=== PATIENT | female | born 1985 | race Caucasian/White ===

== ENCOUNTER 2018-11-25 08:14 | Emergency (ER) | payer MEDICAID, OTHER ==
[~2018-11-25] VITALS: Ht 165.1 cm; Wt 81.5 kg
--- NOTE | 2018-11-25 09:07 | NUR ---
Pt to room from lobby with steady gait at this time.
--- NOTE | 2018-11-25 09:21 | NUR ---
PT WITH C/O R ARM PAIN RADIATING TO NECK. PT STATES, "I CANT TURN MY NECK ALL THE WAY, IM MAXED OUT ON MY TYLENOL, AND I TOOK A FLEXERIL THIS MORNING AND IT DIDNT DO ANYTHING" PT DENIES CP, SOB, TRAUMA TO R ARM. PT ON NIBP, CONT PULSE OX.
[2018-11-25] MEDS ORDERED: DIAZEPAM 5 MG/ML, 2ML IV ONE (09:30)
[2018-11-25] MEDS ORDERED: HYDROmorphone 2 MG/ML, 1ML IVPush PRN (09:30)
[2018-11-25] MEDS ORDERED: methylPREDNISolone SOD SUCC 40 MG/ML IV ONE (09:30)
[2018-11-25] MEDS ORDERED: SODIUM CHLORIDE FLUSH 10ML SYR IVF ONE (09:30)
[2018-11-25] MEDS ORDERED: methylPREDNISolone SOD SUCC 125 MG/2 ML ONE (09:36)
[2018-11-25] MEDS ORDERED: DIAZEPAM 5 MG/ML, 2ML ONE (09:37)
[2018-11-25] MEDS ORDERED: HYDROmorphone 2 MG/ML, 1ML ONE (10:18)
[2018-11-25 11:11] VITALS: BP 120/76
--- NOTE | 2018-11-25 11:11 | NUR ---
Patient/Caregiver given discharge instructions and they have confirmed that they understand the instructions. Patient ambulatory with steady gait. Pt left with all personal belongings.
--- NOTE | 2018-11-25 11:13 | NUR ---
Pt given taxi voucher for safe [place] home.
== END 2018-11-25 11:14 | disposition home or self-care (01) ==
LOC: ED 10:57
DX: S46.811A Strain of other muscles, fascia and tendons at shoulder and upper arm level, right arm, initial encounter (principal); Z87.891 Personal history of nicotine dependence; X58.XXXA Exposure to other specified factors, initial encounter; Y93.89 Activity, other specified; Y92.89 Other specified places as the place of occurrence of the external cause; Y99.8 Other external cause status
CPT/HCPCS: 73010; 96374; 96375; 99283; J1170; J2920; J3360

== ENCOUNTER 2019-02-21 14:35 | Emergency (ER) | payer MEDICAID ==
[~2019-02-21] VITALS: Ht 170.2 cm; Wt 80.0 kg
[2019-02-21 14:38] VITALS: BP 145/88
[2019-02-21] MEDS ORDERED: CYCLOBENZAPRINE 10 MG TABLET PO ONE (15:00)
[2019-02-21] MEDS ORDERED: ONDANSETRON ODT 4 MG PO ONE (15:00)
[2019-02-21] MEDS ORDERED: HYDROcodone/APAP 5/325 TABLET PO ONE (15:00)
[2019-02-21] MEDS ORDERED: KETOROLAC 30 MG/1 ML IM ONE (15:00)
--- NOTE | 2019-02-21 15:16 | NUR ---
34 Y/O FEMALE PRESENTS TO ED WITH C/O BACK PAIN. 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 I GO TO [facility]. THEY'VE GIVEN ME GABAPENTIN AND MUSCLE RELAXERS. THEY AREN'T WORKING. I HAVE AN APPT ON THE , BUT I CAN'T GET OUT OF BED OR WALK. THE PAIN IS SO BAD." PT RESTING ON GURNEY. PT APPEARS TO BE IN MODERATE DISTRESS. DAUGHTER BEDSIDE.
[2019-02-21] MEDS ORDERED: KETOROLAC 30 MG/1 ML ONE (15:22)
[2019-02-21] MEDS ORDERED: CYCLOBENZAPRINE 10 MG TABLET ONE (15:22)
[2019-02-21] MEDS ORDERED: ONDANSETRON ODT 4 MG ONE (15:22)
[2019-02-21] MEDS ORDERED: HYDROcodone/APAP 5/325 TABLET ONE (15:22)
--- NOTE | 2019-02-21 16:17 | NUR ---
Patient/Caregiver given discharge instructions and they have confirmed that they understand the instructions. Patient ambulatory with steady gait. PT LEFT WITH ALL PERSONAL BELONGINGS.
== END 2019-02-21 16:20 | disposition home or self-care (01) ==
LOC: ED 16:05
DX: S39.012A Strain of muscle, fascia and tendon of lower back, initial encounter (principal); M54.41 Lumbago with sciatica, right side; Z79.899 Other long term (current) drug therapy; X58.XXXA Exposure to other specified factors, initial encounter; Y93.89 Activity, other specified; Y92.89 Other specified places as the place of occurrence of the external cause; Y99.8 Other external cause status
CPT/HCPCS: 96372; 99284; J1885; Q0162

== ENCOUNTER 2020-12-08 05:45 | Emergency (ER) | payer MEDICAID ==
[~2020-12-08] VITALS: Ht 170.2 cm; Wt 109.0 kg
--- NOTE | 2020-12-08 06:02 | NUR ---
PT BIB [facility] WITH N/V SINCE 0000. LAST THING PT ATE WAS [facility] AT 1100 12/07/20. PT RESTING ON GURNEY, AND PLACED ON CONTINUOUS MONITORING
[2020-12-08] MEDS ORDERED: MAALOX/HYOSCYAMINE/LIDOCAINE 45 ML BTL ONE (06:13)
[2020-12-08] MEDS ORDERED: PROMETHAZINE 25 MG/ML, 1ML ONE (06:13)
--- NOTE | 2020-12-08 06:22 | NUR ---
PT GIVEN MEDICATIONS, RESTING ON [place]
[2020-12-08 06:24] LABS: BASOPHILS % (AUTO) 0 % (0-1); EOSINOPHILS % (AUTO) 1 % (1-7); LYMPHOCYTES % (AUTO) 7 % (22-44); MEAN CORPUSCULAR HEMOGLOBIN 31.3 pg (27.0-34.8); MEAN CORPUSCULAR HGB CONC 33.4 g/dL (32.4-35.8); MONOCYTES % (AUTO) 3 % (2-9); NEUTROPHILS % (AUTO) 89 % (42-75); PLATELET COUNT 509 x10^3/uL (130-400); RED CELL DISTRIBUTION WIDTH 14.4 % (9.6-15.2)
[2020-12-08 06:30] LABS: ALANINE AMINOTRANSFERASE 40 U/L (12-78); ALBUMIN 3.3 g/dL (3.4-5.0); ANION GAP 12 mmol/L (5-15); CALCIUM 9.3 mg/dL (8.5-10.1); CHLORIDE 110 mmol/L (98-107); CREATININE 0.76 mg/dL (0.55-1.02)
[2020-12-08] MEDS ORDERED: MAALOX/HYOSCYAMINE/LIDOCAINE 45 ML BTL PO ONE (06:30)
[2020-12-08] MEDS ORDERED: PROMETHAZINE 25 MG/ML, 1ML IM ONE (06:30)
[2020-12-08] MEDS ORDERED: SODIUM CHLORIDE FLUSH 10ML SYR IVF ONE (06:30)
[2020-12-08] MEDS ORDERED: SODIUM CHLORIDE 0.9% 1,000ML IVBOLUS ONE (06:30)
[2020-12-08 06:35] LABS: ALKALINE PHOSPHATASE 112 U/L (45-117); BILIRUBIN,TOTAL 0.6 mg/dL (0.2-1.0); TOTAL PROTEIN 7.7 g/dL (6.4-8.2)
--- NOTE | 2020-12-08 07:04 | NUR ---
REPORT GIVEN TO LARISSA KEBEDE
[2020-12-08 07:39] VITALS: BP 152/88
--- NOTE | 2020-12-08 07:59 | NUR ---
PT TO CT.
[2020-12-08] MEDS ORDERED: OMNIPAQUE 350 MG/ML, 100ML BOTTLE ONE (08:18)
--- NOTE | 2020-12-08 08:28 | NUR ---
PT SLEEPING ON GURNEY, RESP EVEN AND UNLABORED, NADN.
[2020-12-08] MEDS ORDERED: HYDROcodone/APAP 10/325 MG TABLET ONE (08:48)
[2020-12-08] MEDS ORDERED: HYDROcodone/APAP 10/325 MG TABLET PO ONE (09:00)
--- NOTE | 2020-12-08 09:52 | NUR ---
Patient given discharge instructions and they have confirmed that they understand the instructions. Patient ambulatory with steady gait.
== END 2020-12-08 10:01 | disposition home or self-care (01) ==
LOC: ED 06:13
DX: J18.1 Lobar pneumonia, unspecified organism (principal); Z20.822 Contact with and (suspected) exposure to COVID-19; R11.2 Nausea with vomiting, unspecified; F17.200 Nicotine dependence, unspecified, uncomplicated
CPT/HCPCS: 36415; 74177; 80053; 83690; 84703; 85025; 96360; 96372; 99285; J2550; J7030; Q9967; U0003; U0005

== ENCOUNTER 2020-12-26 14:44 | Inpatient (IN) | payer MEDICAID ==
[~2020-12-26] VITALS: Ht 170.2 cm; Wt 105.7 kg
[2020-12-26 15:54] LABS: BASOPHILS % (AUTO) 1 % (0-1); EOSINOPHILS % (AUTO) 2 % (1-7); LYMPHOCYTES % (AUTO) 18 % (22-44); MEAN CORPUSCULAR HEMOGLOBIN 30.9 pg (27.0-34.8); MEAN CORPUSCULAR HGB CONC 34.1 g/dL (32.4-35.8); MEAN PLATELET VOLUME 7.2 fL (7.4-10.4); MONOCYTES % (AUTO) 5 % (2-9); NEUTROPHILS % (AUTO) 74 % (42-75); PLATELET COUNT 734 x10^3/uL (130-400); RED BLOOD COUNT 3.81 x10^6/uL (3.82-5.3); RED CELL DISTRIBUTION WIDTH 13.5 % (9.6-15.2)
[2020-12-26] MEDS ORDERED: SODIUM CHLORIDE 0.9% 1,000ML IVBOLUS ONE (16:00)
[2020-12-26] MEDS ORDERED: SODIUM CHLORIDE FLUSH 10ML SYR IVF ONE (16:00)
[2020-12-26] MEDS ORDERED: CEFTRIAXONE 1,000 MG in DEXTROSE 5% 50 ML IVPB ONE (16:00)
[2020-12-26] MEDS ORDERED: AZITHROMYCIN 500 MG in SODIUM CHLORIDE 0.9% 250 ML IV ONE (16:00)
--- NOTE | 2020-12-26 16:00 | NUR ---
PIV PLACED, IVF, ABX. BLOOD CULUTRES DRAWN PRIOR
[2020-12-26 16:07] LABS: ALBUMIN 2.9 g/dL (3.4-5.0); ANION GAP 5 mmol/L (5-15); CALCIUM 9.3 mg/dL (8.5-10.1); CHLORIDE 103 mmol/L (98-107)
[2020-12-26 16:11] LABS: ALANINE AMINOTRANSFERASE 21 U/L (12-78); ALKALINE PHOSPHATASE 94 U/L (45-117); BILIRUBIN,TOTAL 0.3 mg/dL (0.2-1.0); CREATININE 0.74 mg/dL (0.55-1.02); TOTAL PROTEIN 7.7 g/dL (6.4-8.2)
[2020-12-26 16:21] LABS: INTERNATIONAL NORMALIZED RATIO > 8.00 (0.93-1.1); PROTHROMBIN TIME > 84.0 Seconds (9.6-11.5)
[2020-12-26] MEDS ORDERED: POTASSIUM CHLORIDE 20 MEQ TAB.ER.PRT ONE (16:27)
[2020-12-26] MEDS ORDERED: PHYTONADIONE 10 MG/ML, 1ML ONE (16:28)
[2020-12-26] MEDS ORDERED: PHYTONADIONE 10 MG/ML, 1ML IM ONE (16:30)
[2020-12-26] MEDS ORDERED: POTASSIUM CHLORIDE 20 MEQ TAB.ER.PRT PO ONE (16:30)
--- NOTE | 2020-12-26 16:39 | NUR ---
PT AGREEABLE TO ADMISSION NOW
[2020-12-26] MEDS ORDERED: LAMO100T5 PO (16:49)
[2020-12-26] MEDS ORDERED: WARF-36 PO (16:49)
[2020-12-26] MEDS ORDERED: HYDR-3248 PO (16:49)
[2020-12-26] MEDS ORDERED: ATOR-2 PO (16:49)
[2020-12-26] MEDS ORDERED: TRAZ50TA66 PO (16:49)
[2020-12-26] MEDS ORDERED: HYDROcodone/APAP 10/325 MG TABLET ONE (17:43)
[2020-12-26] MEDS ORDERED: ONDANSETRON 2MG/ML, 2ML IVPush PRN (18:00)
[2020-12-26] MEDS ORDERED: ACETAMINOPHEN 325 MG TABLET PO PRN (18:00)
--- NOTE | 2020-12-26 19:09 | NUR ---
AWAITING TRANSFER UPSTAIRS. PT PROVIDED WITH MEAL TRAY. ON CONTINUOUS PULSE OX. NO OTHER NEEDS AT THIS TIME.
--- NOTE | 2020-12-26 19:21 | NUR ---
REPORT GIVEN TO LARISSA FERNANDEZ
[2020-12-26] MEDS: LORazepam 2 MG/ML, 1ML IVPush PRN (19:41)
[2020-12-26] MEDS: ATORVASTATIN 80 MG TABLET PO SCH (20:36)
[2020-12-26] MEDS: TRAZODONE 50MG TABLET PO SCH (20:36)
[2020-12-26] MEDS: BENZONATATE 100 MG CAPSULE PO SCH ×2 (20:36→21:00)
[2020-12-26] MEDS: LAMOTRIGINE 100 MG TABLET PO SCH (20:37)
[2020-12-26] MEDS: ASCORBIC ACID 250 MG TAB PO SCH (20:37)
[2020-12-26 20:45] VITALS: BP 116/76
[2020-12-26] MEDS ORDERED: ALBUTEROL SULFATE 2.5 MG/3 ML NPPB PRN (21:00)
[2020-12-27 03:30] VITALS: BP 117/68
[2020-12-27] MEDS: ASCORBIC ACID 250 MG TAB PO SCH (08:00)
[2020-12-27] MEDS ORDERED: HYDROcodone/APAP 10/325 MG TABLET PO SCH (08:00)
[2020-12-27 08:01] VITALS: BP 110/67
[2020-12-27 08:17] LABS: BASOPHILS % (AUTO) 1 % (0-1); EOSINOPHILS % (AUTO) 6 % (1-7); LYMPHOCYTES % (AUTO) 21 % (22-44); MEAN CORPUSCULAR HEMOGLOBIN 31.1 pg (27.0-34.8); MEAN CORPUSCULAR HGB CONC 33.4 g/dL (32.4-35.8); MEAN PLATELET VOLUME 7.1 fL (7.4-10.4); MONOCYTES % (AUTO) 6 % (2-9); NEUTROPHILS % (AUTO) 66 % (42-75); PLATELET COUNT 675 x10^3/uL (130-400); RED CELL DISTRIBUTION WIDTH 13.8 % (9.6-15.2)
[2020-12-27 08:29] LABS: ALBUMIN 2.4 g/dL (3.4-5.0); CALCIUM 9.2 mg/dL (8.5-10.1)
[2020-12-27 08:39] LABS: ANION GAP 4 mmol/L (5-15); CHLORIDE 108 mmol/L (98-107)
[2020-12-27 08:42] LABS: ALANINE AMINOTRANSFERASE 18 U/L (12-78); ALKALINE PHOSPHATASE 87 U/L (45-117); BILIRUBIN,TOTAL 0.5 mg/dL (0.2-1.0); CREATININE 0.53 mg/dL (0.55-1.02); TOTAL PROTEIN 6.6 g/dL (6.4-8.2)
[2020-12-27] MEDS ORDERED: CHOLECALCIFEROL 5,000u TAB ONE (08:44)
[2020-12-27] MEDS ORDERED: ASCORBIC ACID 500 MG TABLET ONE (08:44)
[2020-12-27 08:50] LABS: INTERNATIONAL NORMALIZED RATIO 5.48 (0.93-1.1); PROTHROMBIN TIME 54.1 Seconds (9.6-11.5)
[2020-12-27] MEDS: HYDROcodone/APAP 10/325 MG TABLET PO PRN ×2 (08:51→13:30)
[2020-12-27] MEDS: LAMOTRIGINE 100 MG TABLET PO SCH ×2 (08:52→20:54)
[2020-12-27] MEDS: ZINC SULFATE 220 MG CAPSULE PO SCH (08:52)
[2020-12-27] MEDS: BENZONATATE 100 MG CAPSULE PO SCH ×3 (08:52→15:32)
[2020-12-27] MEDS ORDERED: CHOLECALCIFEROL 1,000 UNIT TABLET PO SCH (09:00)
[2020-12-27] MEDS ORDERED: CEFTRIAXONE 1,000 MG IVPB SCH (09:00)
[2020-12-27] MEDS: NICOTINE 21 MG/24 HR PATCH.TD24 TD SCH (13:30)
[2020-12-27] MEDS: LORazepam 2 MG/ML, 1ML IVPush PRN ×2 (13:30→20:49)
[2020-12-27 13:38] VITALS: BP 117/67
[2020-12-27] MEDS ORDERED: CLON0.5T20 PO (13:42)
[2020-12-27] MEDS ORDERED: HYDR-826 PO (13:42)
[2020-12-27] MEDS: CEFTRIAXONE 1,000 MG in DEXTROSE 5% 50 ML IVPB SCH (15:56)
[2020-12-27] MEDS: GUAIFENESIN/DM 200-20MG, 10ML UDC PO PRN (16:45)
[2020-12-27] MEDS: AZITHROMYCIN 500 MG in SODIUM CHLORIDE 0.9% 250 ML IV SCH (16:45)
[2020-12-27] MEDS: ASCORBIC ACID 500 MG TABLET PO SCH (16:46)
[2020-12-27] MEDS ORDERED: POTASSIUM PHOSPHATE 44 MEQ in SODIUM CHLORIDE 0.9% 500 ML IV ONE (17:00)
[2020-12-27] MEDS ORDERED: GUAIFENESIN 100 MG/5 ML, 5ML UDC PO PRN (17:00)
[2020-12-27 19:37] VITALS: BP 102/65
[2020-12-27] MEDS: ATORVASTATIN 80 MG TABLET PO SCH (20:50)
[2020-12-27] MEDS: TRAZODONE 50MG TABLET PO SCH (20:54)
[2020-12-28 00:59] VITALS: BP 103/64
[2020-12-28 05:02] LABS: BASOPHILS % (AUTO) 1 % (0-1); EOSINOPHILS % (AUTO) 6 % (1-7); LYMPHOCYTES % (AUTO) 28 % (22-44); MEAN CORPUSCULAR HGB CONC 33.8 g/dL (32.4-35.8); MEAN PLATELET VOLUME 7.2 fL (7.4-10.4); MONOCYTES % (AUTO) 5 % (2-9); NEUTROPHILS % (AUTO) 61 % (42-75); PLATELET COUNT 621 x10^3/uL (130-400); RED BLOOD COUNT 3.65 x10^6/uL (3.82-5.3); RED CELL DISTRIBUTION WIDTH 13.8 % (9.6-15.2)
[2020-12-28 05:12] LABS: INTERNATIONAL NORMALIZED RATIO 1.93 (0.93-1.1)
[2020-12-28 05:17] LABS: CALCIUM 8.9 mg/dL (8.5-10.1)
[2020-12-28 05:19] LABS: CREATININE 0.56 mg/dL (0.55-1.02)
[2020-12-28 05:34] LABS: ANION GAP 3 mmol/L (5-15); CHLORIDE 109 mmol/L (98-107)
[2020-12-28 06:59] VITALS: BP 102/65
[2020-12-28] MEDS: LAMOTRIGINE 100 MG TABLET PO SCH (07:29)
[2020-12-28] MEDS: HYDROcodone/APAP 10/325 MG TABLET PO PRN ×2 (07:29→11:54)
[2020-12-28] MEDS: ASCORBIC ACID 500 MG TABLET PO SCH ×2 (07:29→16:26)
[2020-12-28] MEDS: ZINC SULFATE 220 MG CAPSULE PO SCH (07:29)
[2020-12-28] MEDS ORDERED: POTASSIUM CHLORIDE 20 MEQ TAB.ER.PRT PO ONE (08:30)
[2020-12-28] MEDS ORDERED: CHOLECALCIFEROL 5,000u TAB PO SCH (09:00)
[2020-12-28] MEDS: LORazepam 2 MG/ML, 1ML IVPush PRN ×2 (09:24→13:36)
[2020-12-28] MEDS: GUAIFENESIN/DM 200-20MG, 10ML UDC PO PRN (09:50)
[2020-12-28] MEDS: NICOTINE 21 MG/24 HR PATCH.TD24 TD SCH (11:54)
[2020-12-28 13:04] VITALS: BP 110/63
[2020-12-28] MEDS: AZITHROMYCIN 500 MG in SODIUM CHLORIDE 0.9% 250 ML IV SCH ×2 (16:00→17:35)
[2020-12-28] MEDS: CEFTRIAXONE 1,000 MG in DEXTROSE 5% 50 ML IVPB SCH (16:23)
[2020-12-28] MEDS ORDERED: CEFD300C37 PO (16:47)
[2020-12-28] MEDS ORDERED: AZIT500T10 PO (16:47)
== END 2020-12-28 18:22 | disposition home or self-care (01) | DRG 194 ==
LOC: ED 16:35 → EDIP 17:39 → 3N 19:30
PROVIDERS: ADMIT Internal Medicine; ATTEND Internal Medicine
DX: J15.9 Unspecified bacterial pneumonia (principal); D68.69 Other thrombophilia; E87.6 Hypokalemia; E78.5 Hyperlipidemia, unspecified; F17.200 Nicotine dependence, unspecified, uncomplicated; G89.29 Other chronic pain; M54.9 Dorsalgia, unspecified; F41.9 Anxiety disorder, unspecified; Z20.822 Contact with and (suspected) exposure to COVID-19; Z79.01 Long term (current) use of anticoagulants
CPT/HCPCS: 36415; 71045; 80048; 80053; 83605; 83735; 84100; 84145; 84443; 85025; 85610; 87040; 93005; 96365; 96366; 96368; 96372; G0378; J0456; J0696; J3430; U0005; J2060; J7030; J7040; J7050; U0003